=== PATIENT | female | born 1950 | race Two or more races ===

== ENCOUNTER 2018-05-26 13:19 | Emergency (ER) | payer OTHER ==
[~2018-05-26] VITALS: Ht 170.2 cm; Wt 69.9 kg
[2018-05-26] MEDS ORDERED: DILTIAZEM 24HR240 MG PO (13:56)
[2018-05-26] MEDS ORDERED: TOPROL XL25 M1 PO (13:56)
[2018-05-26] MEDS ORDERED: SYNTHROID88 MCG PO (13:56)
[2018-05-26] MEDS ORDERED: FISH OIL 1,2001 EACH PO (13:57)
[2018-05-26] MEDS ORDERED: HALLS DEFENSE60 MG PO (13:57)
[2018-05-26] MEDS ORDERED: MULTI VITAMIN1 EACH PO (13:57)
== END 2018-05-26 16:18 | disposition home or self-care (01) ==
LOC: ER 13:19
DX: B02.39 Other herpes zoster eye disease (principal)